=== PATIENT | male | born 1970 | race Asian ===

== ENCOUNTER 2016-12-26 16:40 | Emergency (ER) | payer OTHER ==
[2016-12-26 16:43] VITALS: BP 124/84; PULSE 85; TEMP 98.2; BMI 26.6
[2016-12-26] MEDS ORDERED: IBUPROFEN 600 MG TABLET (FP) PO ONE ×2 (17:37→17:44)
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
== END 2016-12-26 17:48 | disposition home or self-care (01) ==
LOC: JERFT 16:40
DX: S00.83XA Contusion of other part of head, initial encounter (principal); Y04.2XXA Assault by strike against or bumped into by another person, initial encounter; Y93.F9 Activity, other caregiving; Y92.538 Other ambulatory health services establishments as the place of occurrence of the external cause; Y99.0 Civilian activity done for income or pay; Y07.9 Unspecified perpetrator of maltreatment and neglect
CPT/HCPCS: 99281-25

== ENCOUNTER 2021-01-25 09:54 | Emergency (ER) | payer OTHER ==
[2021-01-25 10:09] VITALS: BMI 24.9
[2021-01-25] MEDS ORDERED: KETOROLAC TROMETHAMINE 15 MG/ML VIAL IVPUSH ONE (11:31)
[2021-01-25] MEDS ORDERED: KETOROLAC TROMETHAMINE 15 MG/ML VIAL ONE (12:03)
[2021-01-25 12:05] LABS: BASO % 0.6 % (0-2.0); EOS % 1.1 % (0-4.5); HEMOGLOBIN 14.6 GM/dL (11.7-16.9); LYMPH % 24.8 % (8-40); MCH 31.3 pg (25.7-33.7); MCHC 34.8 g/dl (32.0-35.9); MEAN CELL VOLUME 89.8 fl (80-96); MEAN PLT VOLUME 8.2 fl (7.5-11.1); MONO % 6.8 % (3.8-10.2); NEUT % 66.7 % (42.8-82.8); PLATELET COUNT 298 10^3/uL (134-434); RBC 4.68 M/mm3 (4.00-5.60); RDW 13.8 % (11.9-15.9); WHITE BLOOD COUNT 7.3 K/mm3 (4.0-10.0)
[2021-01-25 12:21] LABS: CHLORIDE 105 mmol/L (98-107); SODIUM 139 mmol/L (136-145)
[2021-01-25 12:23] LABS: CALCIUM 8.9 mg/dL (8.5-10.1)
[2021-01-25 12:24] LABS: ALBUMIN 4.3 g/dl (3.4-5.0); ANION GAP 5 MMOL/L (8-16); BLOOD UREA NITROGEN 15.1 mg/dL (7-18); CO2 29 mmol/L (21-32); GLUCOSE,RANDOM 98 mg/dL (74-106)
[2021-01-25 12:27] LABS: SGOT/AST 27 U/L (15-37); SGPT/ALT 36 U/L (13-61)
[2021-01-25 12:28] LABS: BILIRUBIN,TOTAL 0.5 mg/dL (0.2-1); TOT PROT 7.6 g/dl (6.4-8.2)
[2021-01-25 12:30] LABS: ALK PHOS 77 U/L (45-117)
[2021-01-25 16:30] VITALS: BP 163/90; PULSE 75; TEMP 98
== END 2021-01-25 16:20 | disposition home or self-care (01) ==
LOC: JER 09:54
PROC: 3E0333Z Introduction of Anti-inflammatory into Peripheral Vein, Percutaneous Approach (ICD-10-PCS; principal; 2021-01-25)
DX: R07.89 Other chest pain (principal)
CPT/HCPCS: 36415; 71045-TC-FY; 80053; 82550; 82553; 84484; 85025; 93005; 93010; 99285-25